=== PATIENT | male | born 1975 | race Caucasian/White ===

== ENCOUNTER → 2018-12-16 17:27 | Outpatient (CLI) | payer SELFPAY | PROVIDERS: Family Provider Family Medicine; PCP Family Medicine; Referring Provider Nurse Practitioner Adult Health; Visit Provider Nurse Practitioner Adult Health | DX: R31.9 Hematuria, unspecified (principal) | CPT/HCPCS: 87086 ==

== ENCOUNTER → 2019-01-27 09:00 | Outpatient (CLI) | payer SELFPAY ==
[2019-01-27 10:52] LABS: PSA,Total - Annual Screen 1.01 ng/mL (0.00-4.00)
== END ==
PROVIDERS: Family Provider Family Medicine; PCP Family Medicine; Visit Provider Nurse Practitioner Adult Health
DX: Z12.5 Encounter for screening for malignant neoplasm of prostate (principal)
CPT/HCPCS: 36415; 84153; G0103

== ENCOUNTER → 2019-08-06 11:47 | Outpatient (CLI) | payer SELFPAY ==
[2019-06-12 15:34] VITALS: BMI 32.9
--- NOTE | 2019-06-18 09:37 | RAD_ITS ---
STUDY: X-RAY CHEST REASON FOR EXAM: Male, 44 years old. Shortness of breath. History of hypertension. History of stent placement and history of surgery as a child for coarctation of the aorta. TECHNIQUE: 2 views COMPARISON: None. FINDINGS: The lungs are clear and expanded. Negative for consolidation, atelectasis or pleural effusion. Pleural pericardial scarring along the left heart border status post prior midline sternotomy. Normal size heart. Status post stent of the aortic arch surrounded by multiple surgical alma delia. Normal visualized pulmonary arteries. Normal visualized thoracic spine. Rib changes on the left status post prior left thoracotomy. 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 There is no demonstrated abnormality of the visualized soft tissue structures of the upper abdomen. RAD/Chest PA and Lateral IMPRESSION: No acute pulmonary findings. Negative for consolidation, focal atelectasis, cardiomegaly or pleural effusion. Pleural pericardial scarring along the left heart border. Status post prior midline sternotomy and left thoracotomy. Stent graft and vascular alma delia in the area of the aortic arch. Electronically Signed: Johanna Ramirez MD at 21:15 EST , Service support ,
[2019-06-18 10:09] LABS: Absolute Lymphocyte Count 2.38 X10^3/uL (0.83-4.51); Absolute Neutrophil Count 5.7 X10^3/uL (2.0-7.7); Basophil# 0.02 X10^3/uL; Basophil% 0.2 % (0-1); Eosinophil# 0.17 X10^3/uL; Eosinophils% 1.9 % (0-5); Hematocrit 42.8 % (40-54); Hemoglobin 14.4 g/dL (13.0-16.5); Lymphocyte # 2.38 X10^3/ul (4.0); Lymphocyte % 26.4 % (19-41); Mean Corp Hgb Conc 33.6 g/dL (32-36); Mean Corpuscular Hgb 29.4 pg (27.0-32.0); Mean Corpuscular Volume 87.5 fL (80-94); Mean Platelet Vol. 9.6 fl (6.2-12.0); Monocyte# 0.69 X10^3/uL; Monocyte% 7.6 % (0-10); NRBC Flagged by Analyzer 0 % (0-5); Neutrophil # 5.74 X10^3/uL (2.7-7.7); Neutrophil % 63.7 % (47-70); Platelet Count 268 K/mm3 (150-450); RBC Distribution Width CV 12.2 % (11.6-14.6); RBC Distribution Width SD 38.8 fl (35.1-43.9); Red Blood Count 4.89 M/mm3 (4.6-6.2)
[2019-06-18 10:40] LABS: AST(SGOT) 19 U/L (15-37); Alanine Aminotransfer ALT/SGPT 45 U/L (16-61); Albumin, Serum 3.8 g/dL (3.2-5.0); Alkaline Phosphatase 66 U/L (45-117); Anion Gap 3 (5-15); BUN 19 mg/dL (7-18); Bilirubin, Direct 0.11 mg/dL (0.00-0.30); Calcium,Total 8.8 mg/dL (8.5-10.1); Chloride 105 mmol/L (98-107); Cholesterol 156 mg/dL (200); Creatinine, Serum 0.95 mg/dL (0.70-1.30); EST Glomerular Filtration Rate 91 mL/min (>60); Est Glom Filt Rate - Afr Amer 110 mL/min (>60); Globulin 3.9 g/dL (2.2-4.2); Glucose 97 mg/dL (74-106); High Density Lipoprotein 44 mg/dL; Potassium 4.3 mmol/L (3.5-5.1); Protein, Total 7.7 g/dL (6.4-8.2); Sodium Level 139 mmol/L (136-145); T4 Total, Thyroxin 8.5 ug/dL (4.5-12.1); Thyroid Stim Hormone (TSH) 1.61 uIU/mL (0.358-3.74); Triglycerides 158 mg/dL; Very Low Density Lipoprotein 32 mg/dL (5-40)
== END ==
PROVIDERS: Family Provider Family Medicine; PCP Family Medicine; Referring Provider Internal Medicine Cardiovascular Disease; Visit Provider Internal Medicine Cardiovascular Disease
DX: E78.00 Pure hypercholesterolemia, unspecified (principal); Z87.74 Personal history of (corrected) congenital malformations of heart and circulatory system; Q23.1 Congenital insufficiency of aortic valve; R07.9 Chest pain, unspecified; R06.02 Shortness of breath; I10 Essential (primary) hypertension
CPT/HCPCS: 36415; 71046; 80048; 80061; 80076; 83735; 84436; 84443; 85025

== ENCOUNTER → 2019-12-23 06:26 | Outpatient (CLI) | payer SELFPAY ==
[2019-09-17 07:54] VITALS: BMI 32.9
--- NOTE | 2019-12-23 06:30 | CDU_ITS ---
Reason For Study: bruit Rt. Velocities/BP Lt. Velocities/BP Prox CCA 112.5/13.4 cm/sec. Prox CCA 130.2/18.8 cm/sec. Mid CCA 134.7/26.5 cm/sec. Mid CCA 110.1/17.0 cm/sec. Dist CCA 85.2/21.3 cm/sec. Dist CCA 95.5/17.0 cm/sec. Prox ICA 94.3/23.9 cm/sec. Prox ICA 71.6/20.0 cm/sec. Mid ICA 93.0/33.0 cm/sec. Mid ICA 81.4/23.7 cm/sec. Dist ICA 123.0/48.6 cm/sec. Dist ICA 94.9/29.8 cm/sec. Rt. ICA/CCA = .9. Lt. ICA/CCA = .9. Prox ECA 134.7/14.7 cm/sec. Prox ECA 85.1/11.4 cm/sec. Rt. Vert. 59.1/14.7 cm/sec. Right Extracranial There is intimal thickening but no significant atherosclerotic plaque noted in the right common carotid artery. There is intimal thickening but no significant atherosclerotic plaque noted in the right internal carotid artery. There is intimal thickening but no significant atherosclerotic plaque noted in the right external carotid artery. Antegrade flow is noted in the right vertebral artery. Left Extracranial There is intimal thickening but no significant atherosclerotic plaque noted in the left common carotid artery. There is intimal thickening but no significant atherosclerotic plaque noted in the left internal carotid artery. There is intimal thickening but no significant atherosclerotic plaque noted in the left external carotid artery. Flow could not be demonstrated in the left vertebral artery. Procedure Carotid Duplex [id number]. The exam was diagnostic. Exam performed in department. Interpretation Summary Flow could not be demonstrated in the left vertebral artery. No hemodynamically significant plaque or stenosis right extracranial internal carotid artery with less than 50% stenosis <50% stenosis right external carotid No hemodynamically significant plaque or stenosis left extracranial internal carotid artery with less than 50% stenosis <50% stenosis left external carotid Patent and antegrade right vertebral artery Ordering Physician: Paco Marsh Performed By: Alex Momin RVT
--- NOTE | 2019-12-23 06:30 | ECHOCS_ITS ---
Reason For Study: DYSPNEA Procedure This was a 2D Doppler, Color Flow transthoracic echocardiogram. The study was technically difficult. Contrast injection was performed. Exam performed in department. Left Ventricle Normal LV size. Left ventricular systolic function is normal. The estimated ejection fraction is 65 %. No evidence for diastolic dysfunction. No regional wall motion abnormalities noted. Right Ventricle Borderline enlarged right ventricle. Normal systolic function. Atria Normal left atrium. Normal right atrium. No doppler evidence for ASD. Mitral Valve There is moderate mitral annular calcification. Extension of the mitral annular calcification onto the base of the posterior mitral valve leaflet. Mild (1+) mitral valve insufficiency. Tricuspid Valve Normal tricuspid valve. Mild tricuspid valve insufficiency. Right ventricular systolic pressure estimated to be 40 mmHg. Aortic Valve The aortic valve leaflets are not well visualized, however, based upon the 2D echocardiographic images obtained there appears to be findings compatible with a bicuspid aortic valve. Pulmonic Valve The pulmonic valve is not well visualized. Great Vessels Normal sized aortic root. The aortic arch is not well visualized. Pericardium/Pleural No pericardial effusion. Medication Diluted definity 3.0ml given slow IV push to enhance endocardial definition. MMode/2D Measurements & Calculations LVIDd: 4.4 cm IVSd: 1.1 cm Ao root diam: 3.1 cm LVIDs: 2.7 cm LVPWd: 1.2 cm RVDd: 4.1 cm FS: 38.1 % LAV(MOD-bp): 32.1 ml LVAd ap4: 36.4 cm2 SV(MOD-sp4): 90.4 ml LAV(MOD-bp) Indexed: 14.9 ml/m2 EDV(MOD-sp4): 129.9 ml LAV(MOD-sp2): 28.1 ml EDV(sp4-el): 130.7 ml LAV(MOD-sp4): 34.3 ml LVAs ap4: 17.9 cm2 ESV(MOD-sp4): 39.5 ml ESV(sp4-el): 41.3 ml EF(MOD-sp4): 69.6 % EF(sp4-el): 68.4 % SV(sp4-el): 89.4 ml LA A4 area: 14.4 cm2 LA dimension(2D): 3.5 cm RA A4 area: 12.2 cm2 Time Measurements MV dec time: 0.22 sec Doppler Measurements & Calculations MV E max mariano: 132.9 cm/sec Lat Peak E' Mariano: 11.7 cm/sec Med Peak E' Mariano: 12.1 cm/sec MV A max mariano: 48.4 cm/sec E/E' lat: 11.4 E/E' med: 11.0 MV E/A: 2.7 Ao V2 max: 124.0 cm/sec LV V1 max: 92.6 cm/sec PA V2 max: 104.5 cm/sec Ao max P.1 mmHg LV V1 max P.4 mmHg TR max mariano: 302.3 cm/sec TR max P.6 mmHg Interpretation Summary The study was technically difficult. Contrast injection was performed. Left ventricular systolic function is normal. The estimated ejection fraction is 65 %. Borderline enlarged right ventricle. There is moderate mitral annular calcification. Extension of the mitral annular calcification onto the base of the posterior mitral valve leaflet. Mild (1+) mitral valve insufficiency. Mild tricuspid valve insufficiency. The aortic valve leaflets are not well visualized, however, based upon the 2D echocardiographic images obtained there appears to be findings compatible with a bicuspid aortic valve. The aortic arch is not well visualized. Right ventricular systolic pressure estimated to be 40 mmHg. No evidence for diastolic dysfunction. Ordering Physician: Paco Marsh Referring Physician: ADIN SUN Performed By: Tran Reeves, JUANITO, RVT
--- NOTE | 2019-12-23 08:11 | STRESSREP ---
Stress Test Report Date: 12-23-2019 Procedure: Exercise tolerance test/imaging study Indications: Pain; shortness of breath/dyspnea; bicuspid aortic valve/coarctation of the aorta status post repair-multiple Consent: Per the patient Procedure: The patient exercised on a Ellis protocol for 6 minutes and 30 seconds completing Stage II and 30 seconds of Stage III achieving a peak heart rate of 162 bpm (92 % predicted maximal heart rate) with a peak blood pressure 144/78 mmHg and a peak MET capacity of 7 METs. The baseline ECG demonstrated sinus rhythm; right IVCD. The peak exercise ECG demonstrated approximately 1 to [address] segment depression in leads II, III, aVF, and V4 through V6 with resolution towards baseline beginning by approximately 1 minute in recovery. There was an isolated PVC during recovery. The functional capacity was considered average. There was no complaint of chest discomfort during exercise or recovery. The examination was discontinued secondary to dyspnea. Impression: 1. Technically adequate (percent predicted maximal heart rate greater than 85%) exercise tolerance test 2. Peak exercise ECG with approximately 1 to [address] segment depression in leads II, III, aVF, and V4 through V6 with resolution towards baseline beginning by approximately 1 minute in recovery 3. There was an isolated PVC during recovery 4. Nuclear images pending Myocardial perfusion imaging study: Technique: The patient was injected with 13.2 mCi of technetium 99m Cardiolite and subsequently rest SPECT Cardiolite nuclear imaging was obtained in the horizontal long, vertical long, and short axis views. The patient exercised on a Ellis protocol for 6 minutes and 30 seconds completing Stage II and 30 seconds of Stage III achieving a peak heart rate of 162 bpm (92 % predicted maximal heart rate) with a peak blood pressure 144/78 mmHg and a peak MET capacity of 7 METs. The patient was injected with 42.0 mCi of technetium 99m Cardiolite and subsequently stress SPECT Cardiolite nuclear imaging was obtained in the horizontal long, vertical long, and short axis views. A gated Cardiolite study at peak stress was obtained. Interpretation: Rest and stress SPECT Cardiolite nuclear imaging status post realignment, normalization, and attenuation correction, demonstrates the appearance of relative uniform tracer uptake and myocardial perfusion appearing within normal limits. There is end systolic thickening and brightening. The gated Cardiolite study demonstrates myocardial thickening and inward wall motion. The reported LVEF is 69 %. Impression: 1. Rest and stress SPECT Cardiolite nuclear imaging demonstrate relative uniform tracer uptake and myocardial perfusion appearing within normal limits. 2. The gated Cardiolite study reports an LVEF of 69 %. This note was generated with [employer] software. It may contain incorrect words, spelling, and punctuation that were not noted in checking the note before signing.
== END ==
PROVIDERS: PCP Family Medicine; Referring Provider Internal Medicine Cardiovascular Disease; Visit Provider Internal Medicine Cardiovascular Disease
DX: R06.02 Shortness of breath (principal); R07.9 Chest pain, unspecified; I10 Essential (primary) hypertension; Q23.1 Congenital insufficiency of aortic valve; Z87.74 Personal history of (corrected) congenital malformations of heart and circulatory system; R09.89 Other specified symptoms and signs involving the circulatory and respiratory systems
CPT/HCPCS: 78452; 93017; 93306; 93880; A9500; Q9957; A4216; C8929